=== PATIENT | male | born 1985 | race Caucasian/White ===

== ENCOUNTER 2024-11-01 17:14 | Emergency (ER) | payer SELFPAY ==
[~2024-11-01] VITALS: Ht 182.9 cm; Wt 90.7 kg
[2024-11-01] VITALS (8 sets, daily range): BP systolic 114–142; BP diastolic 55–79
[2024-11-01] MEDS ORDERED: SODIUM CHLORIDE 0.9% 1,000 ML IV STA (17:51)
[2024-11-01] MEDS ORDERED: MORPHINE SULFATE 4 MG/ML VIAL IV ONE (18:05)
[2024-11-01] MEDS ORDERED: ONDANSETRON HCl 4 MG/2 ML SDV IV ONE (18:05)
[2024-11-01 18:10] LABS: URINE BILIRUBIN - DIPSTICK Negative (NEGATIVE); URINE BLOOD DIPSTICK Negative (NEGATIVE); URINE GLUCOSE - DIPSTICK Negative (NEGATIVE); URINE KETONE Negative (NEGATIVE); URINE LEUK ESTERASE Negative (NEGATIVE); URINE NITRITE - DIPSTICK Negative (Negative); URINE PROTEIN - DIPSTICK Negative (NEG-TRACE); URINE SPECIFIC GRAVITY 1.025; URINE UROBILINOGEN - DIPSTICK 0.2 E.U./dL (0.2)
[2024-11-01] MEDS ORDERED: PIPERACILLIN Sodium-Tazobactam 3.375 GM in SODIUM CHLORIDE 0.9% 100 ML IV ONE (18:10)
[2024-11-01] MEDS ORDERED: KETOROLAC TROMETHAMINE 30 MG/ML SDV IV ONE (18:10)
[2024-11-01 18:11] LABS: URINE COLOR Yellow
[2024-11-01 18:13] LABS: BASO% 0.1 % (0-3); EOS% 2.2 % (0-8); HEMATOCRIT 45.4 % (39.0-50.0); HEMOGLOBIN 15.7 g/dl (14.0-18.0); IMMATURE GRANULOCYTES 0.7 % (0.0-5.0); MEAN CELL VOLUME 85.7 fL CALC (80.0-100.0); MEAN CORPUSCULAR HGB 29.6 pG CALC (26.0-32.0); MEAN CORPUSCULAR HGB CONC 34.6 g/dL CAL (32.0-36.0); MONO% 7.1 % (2-13); NEUT# 4.05 thou/uL (1.82-7.42); NEUT% 59.9 % (42-76); RED BLOOD COUNT 5.3 mill/uL (4.70-6.10); RED CELL DISTRI WIDTH 12.8 % (11.5-15.5)
[2024-11-01 18:19] LABS: ALBUMIN 4.2 g/dL (3.2-5.0); BILIRUBIN, TOTAL 0.6 mg/dL (0.2-1.3); POTASSIUM 3.9 mmol/l (3.5-5.1)
[2024-11-01] MEDS ORDERED: HYDROmorphone HCL 2 MG/AMP IV ONE (20:10)
[2024-11-01] MEDS ORDERED: AMOXICILLIN & POT CLAVULANATE 875 MG/TAB PO ONE (20:25)
[2024-11-01] MEDS ORDERED: HYDROcodone 5 MG/Acetaminophen 325 MG/COMBO PO ONE (20:25)
[2024-11-01] MEDS ORDERED: ONDANSETRON4 MG PO (20:46)
[2024-11-01] MEDS ORDERED: LORTAB 5/3255 MG PO (20:46)
[2024-11-01] MEDS ORDERED: AMOX/K CLAV875 M1 PO (20:46)
== END 2024-11-01 20:45 | disposition home or self-care (01) | DRG 395 ==
LOC: ED 17:14
PROVIDERS: Nurse Practitioner
DX: I88.0 Nonspecific mesenteric lymphadenitis (principal)
CPT/HCPCS: J1171; J2405; J2543; Q9967